=== PATIENT | female | born 1970 | race Caucasian/White ===

== ENCOUNTER → 2016-07-14 | Outpatient (CLI) | payer MEDICARE | LOC: LAB 11:31 | PROVIDERS: ATTEND Physician Assistant Surgical | DX: R07.82 Intercostal pain (principal); R10.812 Left upper quadrant abdominal tenderness | CPT/HCPCS: 36415; 82565 ==

== ENCOUNTER → 2016-07-15 | Outpatient (CLI) | payer MEDICARE | LOC: RAD 13:51 | PROVIDERS: ATTEND Internal Medicine Gastroenterology | DX: R10.12 Left upper quadrant pain (principal); R07.82 Intercostal pain | CPT/HCPCS: 74160 ==

== ENCOUNTER 2017-08-14 01:27 | Emergency (ER) | payer MEDICARE ==
[2017-08-14 01:52] VITALS: BP 147/64
--- NOTE | 2017-08-14 02:21 | ER Document Report ---
ED Medical Screen (RME) - General Chief Complaint: Chest Pain > 30 Stated Complaint: CHEST PAIN Time Seen by Provider: 08/14/17 02:19 Mode of Arrival: Medic Information source: Patient Notes: 46-year-old female presents to ED for complaint of chest pain pressure shortness of breath for couple days. She is not able to sleep due to being short of breath and the pressure. She states she is also been stressed out recently when her child and grandchildren moved in with her. She denies any history of COPD asthma. She states she does have high blood pressure cholesterol is got diet-controlled diabetes. She is disabled for a shattered disc in her lower back. She smokes half pack a day denies drinking alcohol or using any counter drugs. She is able to speak in full sentences with no pulse for a breath. Respirations are regular even unlabored and lungs to auscultation. Patient states she was given aspirin and sublingual nitroglycerin in the ambulance. I have greeted and performed a rapid initial assessment of this patient. A comprehensive ED assessment and evaluation of the patient, analysis of test results and completion of medical decision making process will be conducted by an additional ED providers. TRAVEL OUTSIDE OF THE [place] IN LAST 30 DAYS: No - Related Data Allergies/Adverse Reactions: No Known Allergies Allergy (Verified 01/31/16 12:57) Past Medical History - Past Medical History Cardiac Medical History: Reports: Hx Hypercholesterolemia, Hx Hypertension Renal/ Medical History: Reports: Hx Kidney Stones GI Medical History: Reports: Hx Gastroesophageal Reflux Disease Past Surgical History: Reports: Hx Gynecologic Surgery - rowena oophorectomy, Hx Hysterectomy, Hx Orthopedic Surgery - lumbar screws and plate - Immunizations Hx Diphtheria, Pertussis, Tetanus Vaccination: No Physical Exam - Vital signs Vitals: Temp Pulse Resp BP Pulse Ox 98.5 F 82 20 147/64 H 98 08/14/17 01:51 08/14/17 01:51 08/14/17 01:51 08/14/17 01:51 08/14/17 01:51 Course - Vital Signs Vital signs: Temp Pulse Resp BP Pulse Ox 98.5 F 82 20 147/64 H 98 08/14/17 01:51 08/14/17 01:51 08/14/17 01:51 08/14/17 01:51 08/14/17 01:51
[2017-08-14 03:26] LABS: ABSOLUTE BASOPHILS # (AUTO) 0.1 10^3/uL (0.0-0.2); ABSOLUTE EOSINOPHILS # (AUTO) 0.4 10^3/uL (0.0-0.6); ABSOLUTE LYMPHOCYTES (AUTO) 4.9 10^3/uL (0.5-4.7); ABSOLUTE MONOCYTES (AUTO) 0.6 10^3/uL (0.1-1.4); ABSOLUTE NEUT (AUTO) 3.8 10^3/uL (1.7-8.2); BASOPHILS % (AUTO) 1.1 % (0-2); EOSINOPHILS % (AUTO) 4.1 % (0-6); HEMATOCRIT 43.7 % (36.0-47.0); HEMOGLOBIN 14.7 g/dL (12.0-15.5); LYMPHOCYTES % (AUTO) 49.8 % (13-45); MEAN CORPUSCULAR HEMOGLOBIN 30.2 pg (27.0-33.4); MEAN CORPUSCULAR HGB CONC 33.8 g/dL (32.0-36.0); MEAN CORPUSCULAR VOLUME 90 fl (80-97); MONOCYTES % (AUTO) 6.5 % (3-13); PLATELET COUNT 245 10^3/uL (150-450); RED BLOOD COUNT 4.88 10^6/uL (3.72-5.28); SEGMENTED NEUTROPHILS % (AUTO) 38.5 % (42-78); TOTAL CELLS COUNTED % (AUTO) 100 %; WHITE BLOOD COUNT 9.9 10^3/uL (4.0-10.5)
--- NOTE | 2017-08-14 03:32 | RADIOLOGY REPORT (SQ) ---
EXAM DESCRIPTION: CHEST SINGLE VIEW CLINICAL HISTORY: CP COMPARISON: 01/31/2016 FINDINGS: Single frontal view of the chest. The cardiomediastinal silhouette has normal size and contour. No consolidation, pneumothorax, or pleural effusion. No displaced rib fractures identified. Upper abdominal soft tissues are unremarkable. IMPRESSION: 1. No acute pulmonary process identified.
[2017-08-14 03:51] LABS: ALANINE AMINOTRANSFERASE 61 U/L (9-52); ALBUMIN 4.2 g/dL (3.5-5.0); ALKALINE PHOSPHATASE 93 U/L (38-126); ANION GAP 9 (5-19); ASPARTATE AMINO TRANSFERASE 30 U/L (14-36); BILIRUBIN,DIRECT 0.4 mg/dL (0.0-0.4); BILIRUBIN,TOTAL 0.5 mg/dL (0.2-1.3); BLOOD UREA NITROGEN 10 mg/dL (7-20); CALCIUM 9.7 mg/dL (8.4-10.2); CARBON DIOXIDE 24 mmol/L (22-30); CHLORIDE 109 mmol/L (98-107); CREATINE KINASE 52 U/L (30-135); GLUCOSE 103 mg/dL (75-110); POTASSIUM 3.9 mmol/L (3.6-5.0); SODIUM 141.7 mmol/L (137-145); TOTAL PROTEIN 7.1 g/dL (6.3-8.2)
[2017-08-14 04:13] LABS: CREATINE KINASE MB 0.32 ng/mL (<4.55)
[2017-08-14 04:14] LABS: TROPONIN I < 0.012 ng/mL
--- NOTE | 2017-08-14 10:04 | EKG REPORT ---
SEVERITY:- ABNORMAL ECG - SINUS RHYTHM ABNRM R PROG, CONSIDER ASMI OR LEAD PLACEMENT : Confirmed by: Saeed Kelly 14-Aug-2017 10:04:12
== END 2017-08-14 08:00 | disposition left against medical advice (07) ==
LOC: ER 01:27
DX: Z53.21 Procedure and treatment not carried out due to patient leaving prior to being seen by health care provider (principal); R07.9 Chest pain, unspecified; R06.02 Shortness of breath; I10 Essential (primary) hypertension; E78.00 Pure hypercholesterolemia, unspecified; E11.9 Type 2 diabetes mellitus without complications; F17.200 Nicotine dependence, unspecified, uncomplicated
CPT/HCPCS: 36415; 71045; 80053; 82550; 82553; 84484; 85025; 93005; 93010; 99281; 99285

== ENCOUNTER → 2020-05-29 | Outpatient (CLI) | payer MEDICARE ==
--- NOTE | 2020-05-29 15:31 | WOMENS IMAGING REPORT ---
EXAM DESCRIPTION: BILAT SCREENING MAMMO W/CAD IMAGES COMPLETED DATE/TIME: 05/29/2020 3:00 pm REASON FOR STUDY: ROUTINE SCREENING MAMMOGRAM Z12.31 Z12.31 ENCNTR SCREEN MAMMOGRAM FOR MALIGNANT N EOPLASM OF TORSTEN COMPARISON: Priors back to 2013 EXAM PARAMETERS: Standard craniocaudal and mediolateral oblique views of each breast recorded using digital acquisition. Read with the assistance of CAD. .[facility] - [employer] Automatic [employer] Former Version 9.2 LIMITATIONS: None. FINDINGS: No suspicious masses, suspicious calcifications or architectural distortion. No areas of c oncern. IMPRESSION: NEGATIVE MAMMOGRAM. BIRADS 1 BREAST DENSITY: b. There are scattered areas of fibroglandular density. BIRAD: ASSESSMENT: 1 NEGATIVE RECOMMENDATION: ROUTINE SCREENING COMMENT: The patient has been notified of the results by letter per MQSA requirements. Additional no tification policies are in place for contacting patient with suspicious or incomplete findings. Quality ID #[id number]: The [employer] recommends an annual screening mammogram for women aged 40 years or over. This facility utilizes a reminder system to ensure that all patients receive reminder letters, and/or direct phone calls for appointments. This includes reminders for routine scr eening mammograms, diagnostic mammograms, or other Breast Imaging Interventions when appropriate. Th is patient will be placed in the appropriate reminder system. TECHNICAL DOCUMENTATION: FINDING NUMBER: (1) ASSESSMENT: (1) JOB ID: [id number] 2010 [email or web address] All Rights Reserved Reading location - IP/workstation name: [email or web address]
== END ==
LOC: WI 14:57
PROVIDERS: ATTEND Physician Assistant
DX: Z12.31 Encounter for screening mammogram for malignant neoplasm of breast (principal)
CPT/HCPCS: 77067